=== PATIENT | female | born 2005 | race Caucasian/White ===

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

== ENCOUNTER 2023-01-04 08:00 | Outpatient (CLI) | payer OTHER | END 2023-01-04 23:59 | disposition home or self-care (01) | LOC: LAB.N 08:00 | PROVIDERS: ATTEND Nurse Practitioner | DX: R30.0 Dysuria (principal) | CPT/HCPCS: 87086 ==

== ENCOUNTER 2023-02-28 16:30 | Outpatient (CLI) | payer OTHER | END 2023-02-28 16:45 | disposition home or self-care (01) | LOC: LAB.N 16:30 | PROVIDERS: ATTEND Registered Nurse | DX: N12 Tubulo-interstitial nephritis, not specified as acute or chronic (principal) | CPT/HCPCS: 87077; 87086 ==

== ENCOUNTER 2023-03-15 11:15 | Outpatient (CLI) | payer OTHER | END 2023-03-15 11:30 | disposition home or self-care (01) | LOC: LAB.N 11:15 | PROVIDERS: ATTEND Specialist | DX: J02.9 Acute pharyngitis, unspecified (principal) | CPT/HCPCS: 87070 ==

== ENCOUNTER 2023-09-11 17:07 | Emergency (ER) | payer OTHER ==
[2023-09-11 17:29] VITALS: BP 134/101; O2SAT 100
--- NOTE | 2023-09-11 18:13 | ED Physician Documentation ---
PD HPI DYSPNEA - Stated complaint Stated Complaint: SOA - Chief complaint Chief Complaint: Resp - History obtained from History obtained from: Patient - Additional information Additional information: The patient comes to the emergency department chief complaint of "I cannot get my asthma under control". She states that for about the past months she has been feeling as though her asthma is getting worse. She keeps waking up in the morning feeling as though she is having trouble breathing and so she has been using not only her fluticasone, centimeter all, and albuterol inhalers, but also, her friend's nebulizer machine. The patient states that she just never feels as though her breathing is better despite using all these things. The patient denies fevers or cough. She states that she has not had any chest pain. Her chest just feels tight. She does state that she starts to feel anxious when she feels like her breathing is getting hard again. No other complaints at this time. PD PAST MEDICAL HISTORY - Past Medical History Past Medical History: Yes Cardiovascular: None Respiratory: Asthma Neuro: None Endocrine/Autoimmune: None GI: None GROUP UNDERWRITER: None : None Psych: Depression, Anxiety, Bipolar disorder - Past Surgical History Past Surgical History: No - Present Medications Home Medications: Ambulatory Orders Medication Instructions Recorded Confirmed Albuterol Sulf [Ventolin Hfa 1 - 2 puffs INH Q4HR PRN 09/11/23 09/11/23 Inhaler] Amitriptyline [Elavil] 30 mg PO HS 09/11/23 09/11/23 Fluticasone Propion/Salmeterol 1 puffs IH BID 09/11/23 09/11/23 [Wixela 250-50 Inhub] lamoTRIgine [LaMICtal] 100 mg PO DAILY 09/11/23 09/11/23 predniSONE [Deltasone] 10 mg PO [id number] #42 tab 09/11/23 - Allergies Allergies/Adverse Reactions: Allergies Allergy/AdvReac Type Severity Reaction Status Date / Time adhesive tape Allergy Rash Verified 09/11/23 17:14 - Social History Does the pt smoke?: No Smoking Status: Never smoker Does the pt drink ETOH?: Yes Does the pt have substance abuse?: No - Immunizations Immunizations are current?: Yes PD ED PE NORMAL - Vitals Vital signs reviewed: Yes - General General: Alert and oriented X 3, Well developed/nourished, Other (The patient appears somewhat anxious but otherwise in no apparent distress.) - HEENT HEENT: Atraumatic, PERRL, EOMI, Moist mucous membranes - Neck Neck: Supple, no meningeal sign - Cardiac Cardiac: RRR, No murmur, Strong equal pulses - Respiratory Respiratory: Clear bilaterally, Other (The patient is not in respiratory distress but Does appear anxious, taking deep breaths with use of shoulders and arching back.) - Abdomen Abdomen: Soft, Non tender, Non distended - Derm Derm: Normal color, Warm and dry, No rash - Extremities Extremities: No deformity, No edema - Neuro Neuro: Alert and oriented X 3 - Psych Psych: Normal mood, Normal affect Results - Vitals Vitals: Vital Signs - 24 hr 09/11/23 09/11/23 17:14 17:46 Temperature 36.5 C Heart Rate 122 H 94 Respiratory 24 22 Rate Blood Pressure 134/101 H O2 Saturation 100 100 Oxygen O2 Source Room air PD Medical Decision Making - ED course Complexity details: considered differential, d/w patient ED course: I discussed with the patient that actually, her lungs are quite clear and I do not feel another breathing treatment would be helpful at all at this point in time. I feel that most likely, the patient has some degree of anxiety and we have discussed this. Undoubtedly, a dose of Ativan or Xanax would help her feel better, but she is driving home. The patient will see her primary doctor about possible anxiety but in the meantime, we will give her a course of steroids to help with any asthma component that is contributing. Departure - Departure Disposition: 01 Home, Self Care Clinical Impression: Anxiety Asthma Qualifiers: Asthma severity: mild Asthma persistence: intermittent Asthma complication type: uncomplicated Qualified Code(s): J45.20 - Mild intermittent asthma, uncomplicated Condition: Stable Instructions: Asthma Dc, ED Panic Attack Prescriptions: predniSONE [Deltasone] 10 mg PO [id number] #42 tab Comments: Your lungs actually sound very good tonight and your oxygen levels are great. You most likely have some degree of your symptoms that is coming from the asthma itself, but given that the asthma attack complete your adrenaline level up and then the medications also have an adrenaline like effect, no just be causing you to feel anxious. You should talk to your doctor about whether you should be on medication for anxiety. You should continue your home asthma medications, and take the prednisone, a steroid, which has been prescribed. Prescription for this has been electronically transmitted to the [facility] pharmacy in [place]. Forms: PCP List
[2023-09-11] MEDS: predniSONE 20 MG TABLET PO STA (18:17)
== END 2023-09-11 19:12 | disposition home or self-care (01) ==
LOC: ED 17:07
DX: J45.20 Mild intermittent asthma, uncomplicated (principal); F41.9 Anxiety disorder, unspecified; Z79.899 Other long term (current) drug therapy
CPT/HCPCS: 99282; 99283; J7512

== ENCOUNTER 2023-09-14 15:30 | Outpatient (CLI) | payer OTHER ==
--- NOTE | 2023-09-14 17:32 | Ultrasound Report ---
PROCEDURE: Arterial Duplex Lwr Ext BL INDICATIONS: SKIN LESIONS TECHNIQUE: Color and pulse Doppler interrogation was performed of both lower extremity arterial systems, with im age documentation. COMPARISON: None FINDINGS: Right lower extremity: Common femoral artery: 156 cm/sec, with triphasic flow. Deep femoral artery: 110 cm/sec, with monophasic flow. Proximal superficial femoral artery: 173 cm/sec, with triphasic flow. Mid superficial femoral artery: 154 cm/sec, with triphasic flow. Distal superficial femoral artery: 111 cm/sec, with triphasic flow. Popliteal artery: 49 cm/sec, with triphasic flow. Posterior tibial artery: 71 cm/sec, with biphasic flow. Anterior tibial artery/dorsalis pedis: 58 cm/sec, with biphasic flow. Swann-scale imaging description: Predominantly biphasic and triphasic waveforms throughout. No focal hemodynamically significant stenosis. Left lower extremity: Common femoral artery: 184 cm/sec, with triphasic flow. Deep femoral artery: 102 cm/sec, with monophasic flow. Proximal superficial femoral artery: 145 cm/sec, with triphasic flow. Mid superficial femoral artery: 139 cm/sec, with triphasic flow. Distal superficial femoral artery: 82 cm/sec, with triphasic flow. Popliteal artery: 66 cm/sec, with triphasic flow. Posterior tibial artery: 70 cm/sec, with biphasic flow. Anterior tibial artery/dorsalis pedis: 59 cm/sec, with biphasic flow. Swann-scale imaging description: Biphasic and triphasic waveforms throughout. No focal hemodynamicall y significant stenosis. IMPRESSION: No sonographic findings to suggest a focal hemodynamically significant stenosis of the bilateral lowe r extremity arteries. Reviewed by: Alejandra Smith MD on 09/14/2023 5:30 PM PST Approved by: Alejandra Smith MD on 09/14/2023 5:30 PM PST Station ID: [id number]
== END 2023-09-14 15:31 | disposition home or self-care (01) ==
LOC: DI 15:30
PROVIDERS: ATTEND Physician Assistant Medical
DX: L98.9 Disorder of the skin and subcutaneous tissue, unspecified (principal)
CPT/HCPCS: 93925

== ENCOUNTER 2024-02-29 18:45 | Emergency (ER) | payer OTHER ==
[2024-02-29 19:48] LABS: BILIRUBIN,URINE NEGATIVE (NEGATIVE); KETONES,URINE (UA) NEGATIVE (NEGATIVE)
[2024-02-29 19:49] LABS: CLARITY,URINE CLOUDY (CLEAR)
[2024-02-29 19:55] LABS: HCG UR QUAL NEGATIVE
[2024-02-29 20:10] LABS: WBC,URINE >25 /HPF (0-5)
[2024-02-29 20:11] LABS: BACTERIA,URINE Moderate /HPF (None Seen); SQUAMOUS EPITHELIAL CELL,UR FEW Squamous (<= Few)
--- NOTE | 2024-02-29 20:22 | ED Physician Documentation ---
History of Present Illness - Stated complaint Stated Complaint: - Chief complaint Chief Complaint: UTI - History obtained from History obtained from: Patient - Additonal information Additional information: Patient is a 18-year-old female presents to the emergency department with 2 days of hematuria and dysuria with frequency. Patient notes symptoms have progressively gotten worse over the last 2 days. She has tried taking Azo for symptoms with no relief. She notes pain does radiate to her lower back with pain worse on left compared to right side. She notes she has had UTIs before but this is slightly worse than previously. She denies any nausea vomiting associate with her symptoms. She denies any history of kidney stones. She has been eating and drinking well at home. She is unsure if she is . PD PAST MEDICAL HISTORY - Past Medical History Cardiovascular: None Respiratory: Asthma Neuro: None Endocrine/Autoimmune: None GI: None MOLD TECHNICIAN: None : None Psych: Depression, Anxiety, Bipolar disorder - Past Surgical History Past Surgical History: No - Present Medications Home Medications: Ambulatory Orders Medication Instructions Recorded Confirmed Albuterol Sulf [Ventolin Hfa 1 - 2 puffs INH Q4HR PRN 09/11/23 09/11/23 Inhaler] Amitriptyline [Elavil] 30 mg PO HS 09/11/23 09/11/23 Fluticasone Propion/Salmeterol 1 puffs IH BID 09/11/23 09/11/23 [[place]ela 250-50 Inhub] lamoTRIgine [LaMICtal] 100 mg PO DAILY 09/11/23 09/11/23 predniSONE [Deltasone] 10 mg PO [id number] #42 tab 09/11/23 Cefdinir 300 mg PO BID #20 cap 02/29/24 - Allergies Allergies/Adverse Reactions: Allergies Allergy/AdvReac Type Severity Reaction Status Date / Time adhesive tape Allergy Rash Verified 09/11/23 17:14 lactose Allergy Unknown Verified 02/29/24 19:04 - Social History Does the pt smoke?: No Smoking Status: Never smoker Does the pt drink ETOH?: Yes Does the pt have substance abuse?: No - Immunizations Immunizations are current?: Yes PD ED PE NORMAL - Vitals Vital signs reviewed: Yes - General General: Alert and oriented X 3 - HEENT HEENT: Atraumatic - Neck Neck: Supple, no meningeal sign - Cardiac Cardiac: RRR, No murmur, No gallop, No rub - Respiratory Respiratory: No respiratory distress, Clear bilaterally - Abdomen Abdomen: Normal bowel sounds, Soft, Non tender, Non distended - Back Back: Other (Left-sided CVA tenderness noted on examination no significant right-sided CVA tenderness.) - Extremities Extremities: No deformity, No tenderness to palpate - Neuro Neuro: Alert and oriented X 3 Results - Vitals Vitals: Vital Signs - 24 hr 02/29/24 18:57 Temperature 37.5 C Heart Rate 87 Respiratory 16 Rate Blood Pressure 135/78 H O2 Saturation 98 Oxygen O2 Source Room air - Labs Labs: Laboratory Tests 02/29/24 19:15 Urine Color ORANGE Urine Clarity CLOUDY Urine pH Ur Specific [place] Urine Protein Urine Glucose (UA) Urine Ketones NEGATIVE Urine Occult Blood Urine Nitrite Urine Bilirubin NEGATIVE Urine Urobilinogen Ur Leukocyte Esterase Urine RBC 11-25 H Urine WBC >25 H Ur Squamous Epith Cells FEW Squamous Urine Bacteria Moderate H Ur Microscopic Review INDICATED Urine Culture Comments INDICATED Urine HCG, Qual NEGATIVE PD Medical Decision Making - ED course Complexity details: reviewed results, re-evaluated patient ED course: Patient is a 18-year-old female presenting to the emergency department with hematuria and dysuria going on for the past 2 days. She notes pain has progressively gotten worse. She has tried Azo for symptoms for about 3 doses with mild improvement in her symptoms but not complete relief. She has had a UTI similar symptoms about 2 other times but today feels worse than previous times. She has not taken any antibiotics. She denies any fevers pain does radiate to the back with left greater than right. Vital stable on arrival. Physical exam shows no significant lower abdominal tenderness abdomen is soft without rebound or guarding. Left-sided CVA tenderness noted on physical exam. No significant right-sided CVA tenderness. Cardiac and lung sounds UA obtained here in the emergency department shows negative test there is moderate bacteria with greater than 25 white blood cells in the urine. Urine cultures are pending at this time. Given left-sided CVA tenderness there is concern for possible pyelonephritis at this time. Low suspicion for any urolithiasis as urinary symptoms started prior to patient having any pain. There are some erythrocytes in the urine but patient has remained afebrile pain does seem to radiate more across the abdomen and lower back as opposed to starting in the back radiating down to lower abdomen. She was given strict return precautions to watch out for any signs of nephro or urolithiasis. Discussed with patient we will start patient on antibiotics will give first dose here in the emergency department IV. Patient is agreeable with this plan. Will have patient follow-up with PCP in about 1 week for reevaluation she was instructed to return to the emergency department with any worsening pain fevers nausea or vomiting. Departure - Departure Disposition: 01 Home, Self Care Clinical Impression: Urinary tract infection, Pyelonephritis Instructions: ED Bladder Infec Cystitis Vs Pyelo Ch Comments: You were seen here in the emergency department for your urinary symptoms your workup here showed a negative test however given your pain and left- sided flank pain and your urine did show bacteria concerning findings for UTI. P lease take antibiotics as prescribed your blood in the urine is most likely secondary to UTI. However if you develop any fevers nausea vomiting worsening flank pain you should return to the emergency department these could be worsening infection versus possible kidney stone in the urine please return to the emergency department with any of the symptoms follow-up with your PCP in 1 week to ensure resolution of symptoms.
[2024-02-29] MEDS ORDERED: cefTRIAXone 1 GM VIAL ONE (21:22)
[2024-02-29] MEDS: cefTRIAXone 1 GM in SODIUM CHLORIDE 0.9% MINIBAG 100 ML IV STA ×2 (21:25→21:27)
[2024-02-29 21:39] VITALS: BP 133/80; O2SAT 97
== END 2024-02-29 22:28 | disposition home or self-care (01) ==
LOC: ED 18:45
DX: N12 Tubulo-interstitial nephritis, not specified as acute or chronic (principal); J45.909 Unspecified asthma, uncomplicated; F41.9 Anxiety disorder, unspecified; F32.A Depression, unspecified
CPT/HCPCS: 81001; 81003; 81025; 87086; 96365; 99283